=== PATIENT | male | born 1985 | race Caucasian/White ===

== ENCOUNTER 2019-03-27 09:13 | Emergency (ER) | payer SELFPAY ==
[~2019-03-27] VITALS: Ht 175.2 cm; Wt 79.6 kg
[2019-03-27] MEDS ORDERED: KETOROLAC 60 MG/2 ML VIAL IM ONE (10:15)
--- NOTE | 2019-03-27 10:19 | ED General ---
General Chief Complaint: Back Problems Stated Complaint: BACK PAIN,NECK PAIN Nursing Triage Note: Patient presents per POV reporting low back pain and left sided neck pain. Pain duration of 5-6 days. Pt is not getting relief from Epsom salts, Ibuprofen, Tylenol, and Icy Hot. Pt last used an OTC product at [facility]. 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 now complains of neck pain L>R and low back pain there was no fall or injury no new sx's in arms or legs PMHx includes etoh abuse and meth Allergies and Home Medications Allergies Coded Allergies: No Known Drug Allergies (Unverified , 03/27/19) Patient Home Medication List Home Medication List Reviewed: Yes Review of Systems Review of Systems Constitutional: no symptoms reported EENTM: no symptoms reported Respiratory: no symptoms reported Cardiovascular: no symptoms reported Gastrointestinal: no symptoms reported Genitourinary: no symptoms reported Musculoskeletal: back pain, neck pain Skin: no symptoms reported Psychiatric/Neurological: No Symptoms Reported Hematologic/Lymphatic: No Symptoms Reported Immunological/Allergic: no symptoms reported Past Keqvfch-Tlxufy-Eppbvk Hx Patient Social History Alcohol Use: Past History Recreational Drug Use: Yes (Recovering Meth addict quit 4 mo ago, denies opioids) Smoking Status: Current Everyday Smoker Type Used: Cigarettes 2nd Hand Smoke Exposure: Yes Recent Foreign Travel: No Contact w/Someone Who Travel: No Recent Infectious Disease Expo: No Recent Hopitalizations: No Physical Abuse: No Sexual Abuse: No Mistreated: No Fear: No Immunizations Up To Date Tetanus Booster (TDap): Unknown Seasonal Allergies Seasonal Allergies: No Past Medical History Surgeries: Yes (ESWL, Stone basket manipulation and J stent) Respiratory: No Cardiac: No Neurological: No Genitourinary: No Gastrointestinal: No Musculoskeletal: No Endocrine: No HEENT: No Cancer: No Psychosocial: No Integumentary: No Blood Disorders: No Physical Exam Vital Signs Vital Signs - First Documented 03/27/19 09:30 Temp 36.5 Pulse 68 Resp 18 B/P (MAP) 138/93 (108) Pulse Ox 97 O2 Delivery Room Air Capillary Refill : Less Than 3 Seconds Height, Weight, BMI Height: '" Weight: lbs. oz. kg; 25.00 BMI Method: General Appearance: No Apparent Distress Eyes: Bilateral Eye PERRL, Bilateral Eye EOMI HEENT: PERRL/EOMI, TMs Normal, Pharynx Normal Neck: Full Range of Motion, Non Tender Respiratory: Chest Non Tender Cardiovascular: Regular Rate, Rhythm Gastrointestinal: Normal Bowel Sounds Back: Normal Inspection, No Vertebral Tenderness, Other (LE's neuro normal SLR neg) Progress/Results/Core Measures Suspected Sepsis Recent Fever Within 48 Hours: No Infection Criteria Present: None New/Unexplained Altered Menta: No Sepsis Screen: No Definite Risk SIRS Temperature: Pulse: 68 Respiratory Rate: 18 Blood Pressure 138 /93 Mean: 108 Results/Orders My Orders Orders - KIM DIXON MD Ketorolac Injection (Toradol Injection) (03/27/19 10:15) Vital Signs/I&O 03/27/19 09:30 Temp 36.5 Pulse 68 Resp 18 B/P (MAP) 138/93 (108) Pulse Ox 97 O2 Delivery Room Air Capillary Refill : Less Than 3 Seconds Blood Pressure Mean: 108 POS Departure Impression Primary Impression: Back strain Qualified Codes: S39.012A - Strain of muscle, fascia and tendon of lower back, initial encounter Additional Impression: Neck strain Qualified Codes: S16.1XXA - Strain of muscle, fascia and tendon at neck level, initial encounter Disposition: 01 HOME, SELF-CARE Condition: Stable Departure-Patient Inst. Decision time for Depature: 10:21 Referrals: NO,LOCAL PHYSICIAN (PCP/Family) Primary Care Physician Patient Instructions: Lumbar Muscle Strain (DC), Cervical Muscle Strain (DC) Scripts Meloxicam (Meloxicam) 15 Mg Tablet 15 MG PO DAILY, #20 TAB Prov: KIM DIXON MD 03/27/19 KIM DIXON MD Mar 27, 2019 10:19 POS
[2019-03-27] MEDS ORDERED: MELO15TA39 PO (10:25)
[2019-03-27 10:28] VITALS: BP 132/90
--- OUTSIDE RECORDS SUMMARY | 2019-04-22 10:17 | XMS REPORT | Continuity of Care Document ---
Author Organization Unknown Address Unknown Phone Unavailable Allergies Active Description Code Type Severity Reaction Onset Reported/Identified Relationship to Patient Clinical Status Yes No Known Drug Allergies [id number] Drug Allergy Unknown N/A 03/27/2019 Medications There is no data. Problems Date Dx Coded Attending Type Code Diagnosis Diagnosed By 03/31/2019 KIM DIXON MD Ot F17.210 NICOTINE DEPENDENCE, CIGARETTES, UNCOMPL 03/31/2019 KIM DIXON MD Ot M54. 9 DORSALGIA, UNSPECIFIED 03/31/2019 KIM DIXON MD Ot S16.1XXA STRAIN OF MUSCLE, FASCIA AND TENDON AT N 03/31/2019 KIM DIXON MD Ot S39.012A STRAIN OF MUSCLE, FASCIA AND TENDON OF L 03/31/2019 KIM DIXON MD Ot X50.0XXA OVEREXERTION FROM STRENUOUS MOVEMENT OR 03/31/2019 KIM DIXON MD Ot Y92. [address] Procedures There is no data. Results There is no data. Encounters ACCT No. Visit Date/Time Discharge Status Pt. Type Provider Facility Loc./Unit Complaint [id number] 03/27/2019 09:15:00 019 10:28:00 DIS Outpatient KIM DIXON MD [facility] ER FS BACK PAIN,NECK PAIN
== END 2019-03-27 10:28 | disposition home or self-care (01) ==
LOC: ER FS 09:15
DX: S39.012A Strain of muscle, fascia and tendon of lower back, initial encounter (principal); S16.1XXA Strain of muscle, fascia and tendon at neck level, initial encounter; F17.210 Nicotine dependence, cigarettes, uncomplicated; X50.0XXA Overexertion from strenuous movement or load, initial encounter; Y92.59 Other trade areas as the place of occurrence of the external cause
CPT/HCPCS: 96372; 99284

== ENCOUNTER 2020-04-04 05:16 | Emergency (ER) | payer SELFPAY ==
[~2020-04-04] VITALS: Ht 177.8 cm; Wt 79.4 kg
[~2020-04-04 05:16] MED LIST: MELO15TA39 PO
--- NOTE | 2020-04-04 05:28 | ED Abdominal Pain ---
General Chief Complaint: Abdominal/GI Problems Stated Complaint: ABD PAIN History of Present Illness Date Seen by Provider: Apr 04, 2020 Time Seen by Provider: 05:27 Initial Comments 34-year-old male presents with epigastric pain. Reports that the pain awoke him around 9 PM last night and had pain throughout the night. Reports that it varies from a 5 to an 8 in intensity. The pain does not radiate. He has no nausea vomiting, diarrhea, constipation, fever or chills. He does have a mild occasional cough. Allergies and Home Medications Allergies Coded Allergies: No Known Drug Allergies (Unverified , 03/27/19) Home Medications Meloxicam 15 Mg Tablet, 15 MG PO DAILY Prescribed by: KIM DIXON on 03/27/19 1025 Patient Home Medication List Home Medication List Reviewed: Yes Review of Systems Review of Systems Constitutional: No chills, No fever Respiratory: Cough (very mild); Denies Shortness of Air Cardiovascular: Denies Chest Pain, Denies Irregular Heart Rate, Denies Lightheadedness, Denies Palpitations Gastrointestinal: Abdominal Pain; Denies Diarrhea, Denies Nausea, Denies Vomiting Genitourinary: No Symptoms Reported; Denies Burning, Denies Frequency Musculoskeletal: no symptoms reported Skin: no symptoms reported Psychiatric/Neurological: No Symptoms Reported Endocrine: No Symptoms Reported Hematologic/Lymphatic: No Symptoms Reported Past Mfyetbk-Qywwso-Yjtgke Hx Past Med/Social Hx: Reviewed Nursing Past Med/Soc Hx Patient Social History Type Used: Cigarettes 2nd Hand Smoke Exposure: Yes Recent Foreign Travel: No Contact w/Someone Who Travel: No Recent Hopitalizations: No Immunizations Up To Date Tetanus Booster (TDap): Unknown Seasonal Allergies Seasonal Allergies: No Past Medical History Surgeries: Yes (ESWL, Stone basket manipulation and J stent) Respiratory: No Cardiac: No Neurological: No Genitourinary: No Gastrointestinal: No Musculoskeletal: No Endocrine: No HEENT: No Cancer: No Psychosocial: No Integumentary: No Blood Disorders: No Physical Exam Vital Signs Vital Signs - First Documented 04/04/20 05:22 Temp 36.0 Pulse 70 Resp 17 B/P (MAP) 119/76 (90) O2 Delivery Room Air Capillary Refill : Height/Weight/BMI Height: '" Weight: lbs. oz. kg; 25.00 BMI Method: General Appearance: mild distress HEENT: PERRL/EOMI Neck: full range of motion, supple Respiratory: lungs clear, normal breath sounds Cardiovascular: normal peripheral pulses, regular rate, rhythm Gastrointestinal: soft; No distended, No guarding, No rebound; tenderness (epigastric) Extremities: normal range of motion, non-tender Back: no CVA tenderness Neurologic/Psychiatric: alert, normal mood/affect, oriented x 3 Skin: normal color, warm/dry Progress/Results/Core Measures Results/Orders Lab Results Laboratory Tests Test 04/04/20 05:31 04/04/20 05:37 Range/Units White Blood Count 9.9 4.3-11.0 10^3/uL Red Blood Count 5.40 4.35-5.85 10^6/uL Hemoglobin 15.9 13.3-17.7 G/DL Hematocrit 48 40-54 % Mean Corpuscular Volume 89 80-99 FL Mean Corpuscular Hemoglobin 29 25-34 PG Mean Corpuscular Hemoglobin Concent 33 32-36 G/DL Red Cell Distribution Width 12.7 10.0-14.5 % Platelet Count 270 130-400 10^3/uL Mean Platelet Volume 10.7 H 7.4-10.4 FL Immature Granulocyte % (Auto) 0 % Neutrophils (%) (Auto) 63 42-75 % Lymphocytes (%) (Auto) 28 12-44 % Monocytes (%) (Auto) 6 0-12 % Eosinophils (%) (Auto) 3 0-10 % Basophils (%) (Auto) 1 0-10 % Neutrophils # (Auto) 6.2 1.8-7.8 X 10^3 Lymphocytes # (Auto) 2.8 1.0-4.0 X 10^3 Monocytes # (Auto) 0.5 0.0-1.0 X 10^3 Eosinophils # (Auto) 0.3 0.0-0.3 10^3/uL Basophils # (Auto) 0.1 0.0-0.1 10^3/uL Immature Granulocyte # (Auto) 0.0 0.0-0.1 10^3/uL Sodium Level 141 135-145 MMOL/L Potassium Level 3.8 3.6-5.0 MMOL/L Chloride Level 103 98-107 MMOL/L Carbon Dioxide Level 27 21-32 MMOL/L Anion Gap 11 5-14 MMOL/L Blood Urea Nitrogen 11 7-18 MG/DL Creatinine 1.01 0.60-1.30 MG/DL Estimat Glomerular Filtration Rate > 60 BUN/Creatinine Ratio 11 Glucose Level 77 70-105 MG/DL Calcium Level 9.2 8.5-10.1 MG/DL Corrected Calcium 8.8 8.5-10.1 MG/DL Total Bilirubin 0.2 0.1-1.0 MG/DL Aspartate Amino Transf (AST/SGOT) 16 5-34 U/L Alanine Aminotransferase (ALT/SGPT) 16 0-55 U/L Alkaline Phosphatase 107 40-136 U/L Total Protein 6.9 6.4-8.2 GM/DL Albumin 4.5 3.2-4.5 GM/DL Lipase 39 8-78 U/L Urine Color YELLOW Urine Clarity CLEAR Urine pH 5.5 5-9 Urine Specific [place] >1.030 1.016-1.022 Urine Protein NEGATIVE NEGATIVE Urine Glucose (UA) NEGATIVE NEGATIVE Urine Ketones NEGATIVE NEGATIVE Urine Nitrite NEGATIVE NEGATIVE Urine Bilirubin NEGATIVE NEGATIVE Urine Urobilinogen 0.2 < = 1.0 MG/DL Urine Leukocyte Esterase NEGATIVE NEGATIVE Urine RBC (Auto) NEGATIVE NEGATIVE Urine RBC NONE /HPF Urine WBC NONE /HPF Urine Squamous Epithelial Cells RARE /HPF Urine Crystals NONE /LPF Urine Bacteria NONE /HPF Urine Casts NONE /LPF Urine Mucus NEGATIVE /LPF Urine Culture Indicated NO My Orders Orders - DEAN CAVAZOS DO Comprehensive Metabolic Panel (04/04/20 05:32) Lipase (04/04/20 05:32) Ua Culture If Indicated (04/04/20 05:32) Ed Iv/Invasive Line Start (04/04/20 05:32) Acute Abd Series (04/04/20 05:32) Cbc With Automated Diff (04/04/20 05:32) Famotidine Injection (Pepcid Injection) (04/04/20 05:32) Lidocaine 2% Viscous 15 Ml (Xylocaine Vi (04/04/20 06:30) Antacid Suspension (Mylanta Suspension (04/04/20 06:30) Vital Signs/I&O 04/04/20 05:22 Temp 36.0 Pulse 70 Resp 17 B/P (MAP) 119/76 (90) O2 Delivery Room Air Progress Progress Note : Time: 06:22 Progress Note Patient with negative labs and x-ray. I suspect patient likely has a gastritis/early ulcer formation. Recommend he start omeprazole and famotidine. I will give him prescription for Bentyl. Patient stable and should follow-up with her primary care provider for further evaluation and few days if symptoms are not improving Diagnostic Imaging Diagonstic Imaging: Xray Plain Films/CT/US/NM/MRI: abdomen Comments no acute finding Reviewed: Reviewed by Me Departure Impression Primary Impression: Gastritis and duodenitis Disposition: HOME, SELF-CARE Condition: Stable Departure-Patient Inst. Referrals: HECTOR MARCUS MD (PCP/Family) Primary Care Physician Patient Instructions: Peptic Ulcers (DC), Gastritis ED Add. Discharge Instructions: Please start famotidine twice daily as instructed on package and omeprazole once daily as instructed on package. These are available [id number] Follow-up with her primary care provider in a couple days for recheck of symp toms All discharge instructions reviewed with patient and/or family. Voiced understanding. Scripts Dicyclomine HCl (Dicyclomine HCl) 10 Mg Capsule 10 MG PO Q6H PRN for PAIN-MILD (1-4), #14 CAP Prov: DEAN CAVAZOS DO 04/04/20 DEAN CAVAZOS DO Apr 04, 2020 05:28
[2020-04-04] MEDS ORDERED: FAMOTIDINE 20MG/2ML IV (PEPCID) IV STA (05:32)
[2020-04-04 05:45] LABS: BASOPHILS # (AUTO) 0.1 10^3/uL (0.0-0.1); BASOPHILS % (AUTO) 1 % (0-10); EOSINOPHILS # (AUTO) 0.3 10^3/uL (0.0-0.3); EOSINOPHILS % (AUTO) 3 % (0-10); HEMATOCRIT 48 % (40-54); HEMOGLOBIN 15.9 G/DL (13.3-17.7); LYMPHOCYTES # (AUTO) 2.8 X 10^3 (1.0-4.0); LYMPHOCYTES % (AUTO) 28 % (12-44); MEAN CORPUSCULAR HEMOGLOBIN 29 PG (25-34); MEAN CORPUSCULAR HGB CONC 33 G/DL (32-36); MEAN CORPUSCULAR VOLUME 89 FL (80-99); MEAN PLATELET VOLUME 10.7 FL (7.4-10.4); MONOCYTES # (AUTO) 0.5 X 10^3 (0.0-1.0); MONOCYTES % (AUTO) 6 % (0-12); NEUTROPHILS # (AUTO) 6.2 X 10^3 (1.8-7.8); NEUTROPHILS % (AUTO) 63 % (42-75); PLATELET COUNT 270 10^3/uL (130-400); WHITE BLOOD COUNT 9.9 10^3/uL (4.3-11.0)
[2020-04-04 05:47] LABS: BILIRUBIN,URINE NEGATIVE (NEGATIVE); CLARITY,URINE CLEAR; COLOR,URINE YELLOW; GLUCOSE, URINE (UA) NEGATIVE (NEGATIVE); KETONES,URINE NEGATIVE (NEGATIVE); NITRITE,URINE NEGATIVE (NEGATIVE); PH,URINE 5.5 (5-9); PROTEIN,URINE NEGATIVE (NEGATIVE)
[2020-04-04 05:48] LABS: LEUKOCYTE ESTERASE ,URINE NEGATIVE (NEGATIVE); SQUAMOUS EPITHELIAL CELL,UR RARE /HPF
[2020-04-04 06:06] LABS: ALANINE AMINOTRANSFERASE 16 U/L (0-55); ALBUMIN 4.5 GM/DL (3.2-4.5); ALKALINE PHOSPHATASE 107 U/L (40-136); BILIRUBIN,TOTAL 0.2 MG/DL (0.1-1.0); BUN/CREATININE RATIO 11; CALCIUM 9.2 MG/DL (8.5-10.1); CARBON DIOXIDE 27 MMOL/L (21-32); CHLORIDE 103 MMOL/L (98-107); CREATININE SERUM 1.01 MG/DL (0.60-1.30); GFR ESTIMATED > 60; GLUCOSE 77 MG/DL (70-105); LIPASE 39 U/L (8-78); POTASSIUM 3.8 MMOL/L (3.6-5.0); SODIUM 141 MMOL/L (135-145); TOTAL PROTEIN 6.9 GM/DL (6.4-8.2)
[2020-04-04] MEDS ORDERED: DICY10CA12 PO (06:26)
[2020-04-04] MEDS ORDERED: ANTACID SUSP 30 ML UDC (MYLANTA) PO ONE (06:30)
[2020-04-04] MEDS ORDERED: LIDOCAINE 2% VISCOUS 15 ML UDC PO ONE (06:30)
[2020-04-04 06:33] VITALS: BP 119/67
--- NOTE | 2020-04-04 06:42 | Diagnostic Imaging Report ---
EXAMINATION: Abdominal radiographs, acute series. DATE: April 04, 2020. CLINICAL INDICATION: 34-year-old male, epigastric pain. COMPARISON: None. COMMENTS: Heart size and mediastinal contours are unremarkable. There is no identified pneumothorax. There is no large pleural effusion. There is no identified focal airspace consolidation. There is no identified free intraperitoneal air. There are gas-filled segments of bowel which are not abnormally distended. There is no identified pneumatosis or portal venous gas. There is no identified abnormal radiodensity overlying the expected positions of the kidneys or ureters. IMPRESSION: No identified acute abdominal radiographic abnormality. Dictated by: Dictated on workstation # [id number]
== END 2020-04-04 06:33 | disposition home or self-care (01) ==
LOC: EDUNIT# 05:16 → ER FS 05:19
DX: K29.70 Gastritis, unspecified, without bleeding (principal); K29.80 Duodenitis without bleeding; R05 Cough; Z77.22 Contact with and (suspected) exposure to environmental tobacco smoke (acute) (chronic)
CPT/HCPCS: 36415; 74022; 80053; 81000; 83690; 85025

== ENCOUNTER 2021-12-11 13:46 | Emergency (ER) | payer SELFPAY ==
[~2021-12-11] VITALS: Ht 177 cm; Wt 80.0 kg
[~2021-12-11 13:46] MED LIST changes: +DICY10CA12 PO
[2021-12-11] MEDS ORDERED: ONDANSETRON 4 MG/2 ML (SDV) Z0FRAN IVP STA (13:52)
[2021-12-11] MEDS ORDERED: KETOROLAC 30 MG/ML VIAL IVP STA (13:52)
[2021-12-11] MEDS ORDERED: PANTOPRAZOLE 40 MG (PROTONIX) VIAL IV STA (13:52)
[2021-12-11] MEDS ORDERED: NS IV 1000 ML 1,000 ML IV STA ×2 (13:52→14:33)
[2021-12-11 13:57] LABS: BASOPHILS # (AUTO) 0.1 10^3/uL (0.0-0.1); BASOPHILS % (AUTO) 1 % (0-10); EOSINOPHILS # (AUTO) 0.3 10^3/uL (0.0-0.3); EOSINOPHILS % (AUTO) 2 % (0-10); HEMATOCRIT 49 % (40-54); LYMPHOCYTES # (AUTO) 3.6 10^3/uL (1.0-4.0); LYMPHOCYTES % (AUTO) 30 % (12-44); MEAN CORPUSCULAR HEMOGLOBIN 30 pg (25-34); MEAN CORPUSCULAR HGB CONC 35 g/dL (32-36); MEAN CORPUSCULAR VOLUME 85 fL (80-99); MEAN PLATELET VOLUME 10.5 fL (9.0-12.2); MONOCYTES % (AUTO) 8 % (0-12); NEUTROPHILS # (AUTO) 7.1 10^3/uL (1.8-7.8); NEUTROPHILS % (AUTO) 59 % (42-75); PLATELET COUNT 353 10^3/uL (130-400)
[2021-12-11] MEDS ORDERED: IOHEXOL 350 MG/ML 100 ML (OMNIPAQUE 350) VIAL IV ONE (14:15)
[2021-12-11] MEDS ORDERED: NS 100 ML (IVPB) BAG IV ONE (14:15)
[2021-12-11] MEDS ORDERED: HOLD METFORMIN - RECEIVED CONTRAST 20 ML VIAL IV SCH (14:15)
[2021-12-11 14:18] LABS: CHLORIDE 105 MMOL/L (98-107); POTASSIUM 4.6 MMOL/L (3.6-5.0); SODIUM 138 MMOL/L (135-145)
[2021-12-11 14:19] LABS: ALANINE AMINOTRANSFERASE 48 U/L (0-55); ALBUMIN 4.3 GM/DL (3.2-4.5); ALKALINE PHOSPHATASE 143 U/L (40-136); BILIRUBIN,TOTAL 0.2 MG/DL (0.1-1.0); BUN/CREATININE RATIO 19; CALCIUM 9.4 MG/DL (8.5-10.1); CARBON DIOXIDE 20 MMOL/L (21-32); GFR ESTIMATED 99; GLUCOSE 94 MG/DL (70-105); LIPASE 29 U/L (8-78); TOTAL PROTEIN 7.1 GM/DL (6.4-8.2)
[2021-12-11 14:21] LABS: BILIRUBIN,URINE NEGATIVE (NEGATIVE); CLARITY,URINE CLEAR; COLOR,URINE YELLOW; GLUCOSE, URINE (UA) NEGATIVE (NEGATIVE); KETONES,URINE NEGATIVE (NEGATIVE); LEUKOCYTE ESTERASE ,URINE NEGATIVE (NEGATIVE); NITRITE,URINE NEGATIVE (NEGATIVE); PH,URINE 5.5 (5-9); PROTEIN,URINE NEGATIVE (NEGATIVE)
--- NOTE | 2021-12-11 14:21 | ED GI ---
General Chief Complaint: Abdominal/GI Problems Stated Complaint: N/V; ABD PAIN Nursing Triage Note: PT REPORTS NAUSEA, VOMITING, AND DIARRHEA X 2 DAYS. Source of Information: Patient, EMS History of Present Illness Date Seen by Provider: Dec 11, 2021 Time Seen by Provider: 13:46 Initial Comments 36-year-old male presenting with complaints of 2 days of watery diarrhea with diffuse abdominal pain, nausea, vomiting. He states that he has not been able to keep anything down for the last 2 days. He had tried going to urgent care today and they did a rapid COVID and strep swab which she reports were both negative. Because he was still feeling so bad they called 911 and had him brought to the emergency department. He denies any abdominal surgeries in the past. He states he has had kidney stones previously but this feels different. He denies eating or drinking anything differently. He has had no ill contacts. Timing/Duration: 1-2 Days Severity/Quality: Moderate, Cramping, Sharp Location: Generalized Abdomen Activities at Onset: None Modifying Factors: Worsens With Eating Associated Symptoms: No Back Pain, No Chest Pain, No Diaphoresis, No Fever/Chills, No Fatigue, No Headache, No Heartburn; Nausea/Vomiting; No Rash, No Shortness of Air, No Swelling/Mass in Abdomen, No Syncope, No Weakness Allergies and Home Medications Allergies Coded Allergies: No Known Drug Allergies (Unverified , 03/27/19) Patient Home Medication List Home Medication List Reviewed: Yes Dicyclomine HCl (Dicyclomine HCl) 10 Mg Capsule, 10 MG PO QID PRN for abdominal pain Prescribed by: CB SORENSEN on 12/11/21 1520 Ondansetron (Ondansetron Odt) 4 Mg Tab.rapdis, 4 MG PO Q6H PRN for NAUSEA/VOMITING Prescribed by: CB SORENSEN on 12/11/21 1520 Discontinued Medications Dicyclomine HCl (Dicyclomine HCl) 10 Mg Capsule, 10 MG PO Q6H PRN for PAIN-MILD (1-4) Prescribed by: DEAN CAVAZOS on 04/04/20 0626 Meloxicam (Meloxicam) 15 Mg Tablet, 15 MG PO DAILY Prescribed by: KIM DIXON on 03/27/19 1025 Review of Systems Review of Systems Constitutional: No chills, No fever EENTM: No Symptoms Reported Respiratory: No Symptoms Reported Cardiovascular: No Symptoms Reported Gastrointestinal: See HPI Genitourinary: Denies Burning Musculoskeletal: no symptoms reported Skin: No rash Psychiatric/Neurological: Denies Headache Endocrine: No Symptoms Reported Hematologic/Lymphatic: No Symptoms Reported Past Bcskmyd-Ujejyb-Okpidt Hx Patient Social History Tobacco Use?: Yes Tobacco type used: Cigarettes Smoking Status: Current Everyday Smoker Use of E-Cig and/or Vaping dev: No Substance use?: No Alcohol Use?: No Pt feels they are or have been: No Immunizations Up To Date Tetanus Booster (TDap): Unknown Seasonal Allergies Seasonal Allergies: No Past Medical History Surgery/Hospitalization HX: Kidney stones Surgeries: Yes (ESWL, Stone basket manipulation and J stent) Respiratory: No Cardiac: No Neurological: No Genitourinary: No Gastrointestinal: No Musculoskeletal: No Endocrine: No HEENT: No Cancer: No Psychosocial: No Integumentary: No Blood Disorders: No Physical Exam Vital Signs Vital Signs - First Documented 12/11/21 13:46 Temp 36.4 Pulse 76 Resp 18 B/P (MAP) 109/85 (93) Pulse Ox 99 O2 Delivery Room Air Capillary Refill : Less Than 3 Seconds Height/Weight/BMI Height: '" Weight: lbs. oz. kg; 25.00 BMI Method: General Appearance: moderate distress (anxious) HEENT: PERRL/EOMI, pharynx normal Neck: non-tender, full range of motion, supple, normal inspection Respiratory: chest non-tender, lungs clear, normal breath sounds, no respiratory distress, no accessory muscle use Cardiovascular: normal peripheral pulses, regular rate, rhythm Gastrointestinal: normal bowel sounds, soft, no pulsatile mass; No distended; guarding; No rebound; tenderness (diffuse) Rectal: deferred Extremities: normal range of motion, non-tender, normal capillary refill Back: no CVA tenderness Neurologic/Psychiatric: alert, oriented x 3 Skin: normal color, warm/dry Progress/Results/Core Measures Results/Orders Lab Results Laboratory Tests Test 12/11/21 13:48 12/11/21 14:14 Range/Units White Blood Count 12.0 H 4.3-11.0 10^3/uL Red Blood Count 5.75 H 4.30-5.52 10^6/uL Hemoglobin 17.0 13.3-17.7 g/dL Hematocrit 49 40-54 % Mean Corpuscular Volume 85 80-99 fL Mean Corpuscular Hemoglobin 30 25-34 pg Mean Corpuscular Hemoglobin Concent 35 32-36 g/dL Red Cell Distribution Width 12.5 10.0-14.5 % Platelet Count 353 130-400 10^3/uL Mean Platelet Volume 10.5 9.0-12.2 fL Immature Granulocyte % (Auto) 0 % Neutrophils (%) (Auto) 59 42-75 % Lymphocytes (%) (Auto) 30 12-44 % Monocytes (%) (Auto) 8 0-12 % Eosinophils (%) (Auto) 2 0-10 % Basophils (%) (Auto) 1 0-10 % Neutrophils # (Auto) 7.1 1.8-7.8 10^3/uL Lymphocytes # (Auto) 3.6 1.0-4.0 10^3/uL Monocytes # (Auto) 1.0 0.0-1.0 10^3/uL Eosinophils # (Auto) 0.3 0.0-0.3 10^3/uL Basophils # (Auto) 0.1 0.0-0.1 10^3/uL Immature Granulocyte # (Auto) 0.1 0.0-0.1 10^3/uL Sodium Level 138 135-145 MMOL/L Potassium Level 4.6 3.6-5.0 MMOL/L Chloride Level 105 98-107 MMOL/L Carbon Dioxide Level 20 L 21-32 MMOL/L Anion Gap 13 5-14 MMOL/L Blood Urea Nitrogen 19 H 7-18 MG/DL Creatinine 1.00 0.60-1.30 MG/DL Estimat Glomerular Filtration Rate 99 BUN/Creatinine Ratio 19 Glucose Level 94 70-105 MG/DL Calcium Level 9.4 8.5-10.1 MG/DL Corrected Calcium 9.2 8.5-10.1 MG/DL Total Bilirubin 0.2 0.1-1.0 MG/DL Aspartate Amino Transf (AST/SGOT) 28 5-34 U/L Alanine Aminotransferase (ALT/SGPT) 48 0-55 U/L Alkaline Phosphatase 143 H 40-136 U/L Total Protein 7.1 6.4-8.2 GM/DL Albumin 4.3 3.2-4.5 GM/DL Lipase 29 8-78 U/L Serum Alcohol < 10 <10 MG/DL Urine Color YELLOW Urine Clarity CLEAR Urine pH 5.5 5-9 Urine Specific [place] >=1.030 1.016-1.022 Urine Protein NEGATIVE NEGATIVE Urine Glucose (UA) NEGATIVE NEGATIVE Urine Ketones NEGATIVE NEGATIVE Urine Nitrite NEGATIVE NEGATIVE Urine Bilirubin NEGATIVE NEGATIVE Urine Urobilinogen 0.2 < = 1.0 MG/DL Urine Leukocyte Esterase NEGATIVE NEGATIVE Urine RBC (Auto) 1+ H NEGATIVE Urine RBC 10-25 H /HPF Urine WBC 0-2 /HPF Urine Squamous Epithelial Cells RARE /HPF Urine Crystals NONE /LPF Urine Bacteria NEGATIVE /HPF Urine Casts NONE /LPF Urine Mucus NEGATIVE /LPF Urine Culture Indicated NO Urine Opiates Screen NEGATIVE NEGATIVE Urine Oxycodone Screen NEGATIVE NEGATIVE Urine Methadone Screen NEGATIVE NEGATIVE Urine Propoxyphene Screen NEGATIVE NEGATIVE Urine Barbiturates Screen NEGATIVE NEGATIVE Ur Tricyclic Antidepressants Screen NEGATIVE NEGATIVE Urine Phencyclidine Screen NEGATIVE NEGATIVE Urine Amphetamines Screen POSITIVE H NEGATIVE Urine Methamphetamines Screen POSITIVE H NEGATIVE Urine Benzodiazepines Screen NEGATIVE NEGATIVE Urine Cocaine Screen NEGATIVE NEGATIVE Urine Cannabinoids Screen NEGATIVE NEGATIVE My Orders Orders - CB SORENSEN MD Comprehensive Metabolic Panel (12/11/21 13:52) Lipase (12/11/21 13:52) Ua Culture If Indicated (12/11/21 13:52) Ed Iv/Invasive Line Start (12/11/21 13:52) Cbc With Automated Diff (12/11/21 13:52) Ct Abdomen/Pelvis W (12/11/21 13:52) Drug Screen Stat (Urine) (12/11/21 13:52) Alcohol (12/11/21 13:52) Ns Iv 1000 Ml (Sodium Chloride 0.9%) (12/11/21 13:52) Pantoprazole Injection (Protonix Injecti (12/11/21 13:52) Ondansetron Injection (Zofran Injectio (12/11/21 13:52) Ketorolac Injection (Toradol Injection) (12/11/21 13:52) Iohexol Injection (Omnipaque 350 Mg/Ml 1 (12/11/21 14:15) Received Contrast (Hold Metformin- Contr (12/11/21 14:15) Ns (Ivpb) (Sodium Chloride 0.9% Ivpb Bag (12/11/21 14:15) Ns Iv 1000 Ml (Sodium Chloride 0.9%) (12/11/21 14:33) Medications Given in ED Current Medications Medications Dose Ordered Sig/Kristen Route Start Time Stop Time Status Last Admin Dose Admin Iohexol 100 ml ONCE ONCE IV 12/11/21 14:15 12/11/21 14:16 DC 12/11/21 14:24 100 ML Sodium Chloride 100 ml ONCE ONCE IV 12/11/21 14:15 12/11/21 14:16 DC 12/11/21 14:24 100 ML Vital Signs/I&O 12/11/21 12/11/21 13:46 15:16 Temp 36.4 36.4 Pulse 76 78 Resp 18 18 B/P (MAP) 109/85 (93) 116/72 Pulse Ox 99 99 O2 Delivery Room Air Room Air Blood Pressure Mean: 93 Progress Progress Note #1: Progress Note Check basic labs as well as urinalysis and urine drug screen. CT scan of the abdomen pelvis with IV contrast to evaluate for colitis, diverticulitis, appendicitis, cholecystitis, bowel obstruction, abdominal mass. Give normal saline 1 L IV fluid bolus for hydration, Zofran 4 mg IV for nausea, Toradol 30 mg IV for pain, Protonix 40 mg IV for gastritis Progress Note #2: Progress Note Labs are stable without acute significant abnormality. He does have mild elevated white blood cell count to 12,000. His urinalysis is concentrated to go along with dehydration. He has methamphetamines and amphetamines in his urine drug screen. He has findings pyelonephritis on his CT scan without signs of any acute surgical findings. He is feeling better with treatment. Will continue nausea medicine and abdominal cramping/pain. Encouraged to check with clinic if not improving. Liquid diet for 24 to 48 hours before advancing to bland then regular food. Diagnostic Imaging Diagonstic Imaging: CT Plain Films/CT/US/NM/MRI: abdomen, pelvis Comments NAME: MARA PATEL [facility] REC#: [id number] PT STATUS: REG ER : 1985 PHYSICIAN: CB SORENSEN MD ADMIT DATE: 12/11/21/ER FS Draft Date of Exam:12/11/21 CT ABDOMEN/PELVIS W PROCEDURE: CT abdomen and pelvis with contrast. TECHNIQUE: Multiple contiguous axial images were obtained through the abdomen and pelvis after administration of intravenous contrast. Auto Exposure Controls were utilized during the CT exam to meet ALARA standards for radiation dose reduction. All CT scans use one or more of the following dose optimizing techniques: automated exposure control, MA and/or KvP adjustment based on patient size and exam type or iterative reconstruction. INDICATION: Diffuse abdominal pain for 2 days. No prior studies are available for comparison. The lung bases are clear. Liver and gallbladder are unremarkable. No biliary duct dilatation is seen. Pancreas and spleen are unremarkable. Adrenal glands and kidneys are unremarkable. Aorta is nonaneurysmal. Some normal-sized lymph nodes in the central retroperitoneum are noted. There are some fluid-filled small bowel loops without evidence of focal transition. Findings may be on the basis of enteritis. Colon is of normal caliber. There is trace free fluid in the pelvis. Bladder is diffusely thick-walled. Prostate is unremarkable. IMPRESSION: Nonspecific fluid-filled small bowel loops without evidence of transition, suggestive of enteritis. Diffuse bladder wall thickening. Cystitis cannot be excluded. Dictated on workstation # [id number] Dict: 12/11/21 1436 Trans: 12/11/21 1448 [employer] [facility] [id number] Interpreted by: VERONICA SOLORIO MD Electronically signed by: Reviewed: Reviewed by Me Departure Impression Primary Impression: Nausea vomiting and diarrhea Additional Impressions: Gastroenteritis Methamphetamine abuse Disposition: 01 HOME, SELF-CARE Condition: Stable Departure-Patient Inst. Decision time for Depature: 15:18 Referrals: HECTOR MARCUS MD (PCP/Family) Primary Care Physician Patient Instructions: CLEAR LIQUID DIET ADULT/CHILD, Diarrhea, Adult ED, Methamphetamine, Nausea and Vomiting, Adult ED, Viral Gastroenteritis, Adult (DC) Add. Discharge Instructions: Stay well hydrated and drink plenty of fluids. Follow a liquid diet for 24 to 48 hours then advance to bland soft foods. If you tolerate those for 24 hours then you could advance back to regular foods Use the dissolving nausea medicine to help keep your stomach settled. Take the dicyclomine to help with abdominal cramping and pain Check back with clinic for continued concerns. Avoid using Methamphetamines and drugs. All discharge instructions reviewed with patient and/or family. Voiced understanding. Scripts Dicyclomine HCl (Dicyclomine HCl) 10 Mg Capsule 10 MG PO QID PRN for abdominal pain for 7 Days, #28 CAP 0 Refills Prov: CB SORENSEN MD 12/11/21 Ondansetron (Ondansetron Odt) 4 Mg Tab.rapdis 4 MG PO Q6H PRN for NAUSEA/VOMITING for 5 Days, #20 TAB 0 Refills Prov: CB SORENSEN MD 12/11/21 CB SORENSEN MD Dec 11, 2021 14:21
[2021-12-11 14:27] LABS: BACTERIA,URINE NEGATIVE /HPF; WBC,URINE 0-2 /HPF
[2021-12-11 14:28] LABS: SQUAMOUS EPITHELIAL CELL,UR RARE /HPF
[2021-12-11 14:30] LABS: AMPHETAMINE SCREEN, URINE POSITIVE (NEGATIVE); BARBITURATE SCREEN URINE NEGATIVE (NEGATIVE); BENZODIAZEPINES SCREEN URINE NEGATIVE (NEGATIVE); CANNABINOID SCREEN, URINE NEGATIVE (NEGATIVE); COCAINE SCREEN URINE NEGATIVE (NEGATIVE); METHADONE STAT NEGATIVE (NEGATIVE); OPIATE SCREEN URINE NEGATIVE (NEGATIVE); OXYCODONE STAT NEGATIVE (NEGATIVE); PROPOXYPHENE STAT NEGATIVE (NEGATIVE); TRICYCLIC ANTIDEPRESSANTS SCRE NEGATIVE (NEGATIVE)
--- NOTE | 2021-12-11 14:48 | Diagnostic Imaging Report ---
PROCEDURE: CT abdomen and pelvis with contrast. TECHNIQUE: Multiple contiguous axial images were obtained through the abdomen and pelvis after administration of intravenous contrast. Auto Exposure Controls were utilized during the CT exam to meet ALARA standards for radiation dose reduction. All CT scans use one or more of the following dose optimizing techniques: automated exposure control, MA and/or KvP adjustment based on patient size and exam type or iterative reconstruction. INDICATION: Diffuse abdominal pain for 2 days. No prior studies are available for comparison. The lung bases are clear. Liver and gallbladder are unremarkable. No biliary duct dilatation is seen. Pancreas and spleen are unremarkable. Adrenal glands and kidneys are unremarkable. Aorta is nonaneurysmal. Some normal-sized lymph nodes in the central retroperitoneum are noted. There are some fluid-filled small bowel loops without evidence of focal transition. Findings may be on the basis of enteritis. Colon is of normal caliber. There is trace free fluid in the pelvis. Bladder is diffusely thick-walled. Prostate is unremarkable. IMPRESSION: Nonspecific fluid-filled small bowel loops without evidence of transition, suggestive of enteritis. Diffuse bladder wall thickening. Cystitis cannot be excluded. Dictated by: Dictated on workstation # [id number]
[2021-12-11 15:16] VITALS: BP 116/72
[2021-12-11] MEDS ORDERED: ONDA4TAB11 PO (15:20)
[2021-12-11] MEDS ORDERED: DICY10CA12 PO (15:20)
== END 2021-12-11 15:21 | disposition home or self-care (01) ==
LOC: EDUNIT# 13:46 → ER FS 13:47
DX: K52.9 Noninfective gastroenteritis and colitis, unspecified (principal); F15.10 Other stimulant abuse, uncomplicated; N12 Tubulo-interstitial nephritis, not specified as acute or chronic; E86.0 Dehydration; F17.210 Nicotine dependence, cigarettes, uncomplicated; Z28.310 Unvaccinated for COVID-19
CPT/HCPCS: 36415; 74177; 80053; 80306; 81000; 83690; 85025; G0480; 80320; 96361; 96374; 96375; Q9967